=== PATIENT | female | born 1990 | race Caucasian/White ===

== ENCOUNTER 2020-05-22 01:13 | Outpatient (CLI) | payer BC, SELFPAY ==
[2020-05-22 18:31] LABS: SARS-CoV-2 RNA PCR Negative
== END 2020-05-22 01:14 | disposition home or self-care (01) ==
LOC: ANHCOVIDDT 01:13
PROVIDERS: PCP Obstetrics & Gynecology; Visit Provider Internal Medicine Gastroenterology
DX: Z01.812 Encounter for preprocedural laboratory examination (principal); Z20.828 Contact with and (suspected) exposure to other viral communicable diseases
CPT/HCPCS: 87635; C9803; U0003

== ENCOUNTER 2020-05-25 01:11 | Day surgery (SDC) | payer BC, SELFPAY ==
[2020-05-18 13:00] VITALS: BMI 42.2
[2020-05-25 12:46] VITALS: BP 143/96; PULSE 74; RESP 74; TEMP 36.2; O2SAT 99
[2020-05-25] MEDS: LACTATED RINGERS 1,000 ML 150 ML IV CONT (12:56)
--- NOTE | 2020-05-25 13:17 | P.PNAN_ITS ---
Anes - Initial Pre Proc Eval Procedure: Operation Date: 05/25/20 14:00 Proposed Procedures p Esophagogastroduodenoscopy & Colonoscopy - Leonardo Pfeiffer MD Date/Time: 05/25/20 13:17 Surgeon: Leonardo Pfeiffer MD Pre Op Diagnosis: Abdominal Pain/ Change In Bowel Habits Patient Data Age: 30 Gender: F Height: 5 ft 5 in Weight: 110.9 kg Last Vital Signs Temp 97.2 F L 05/25/20 12:46 Pulse 74 05/25/20 12:46 Resp 74 H 05/25/20 12:46 BP 143/96 H 05/25/20 12:46 Pulse Ox 99 05/25/20 12:46 Allergies Allergy/AdvReac Type Severity Reaction Status Date / Time prochlorperazine Allergy Rash Verified 05/25/20 12:45 [From Compazine] Home Medications Medication Instructions Recorded Confirmed Type levothyroxine 200 mcg tablet 225 mcg PO DAILY tablet 04/29/20 05/18/20 History naproxen sodium [Aleve] 220 mg PO Q12H PRN 05/18/20 05/18/20 History Patient hx anesthesia problems: none Family hx anesthesia problems: none [facility] Past Medical History Medical History (Updated 04/29/20 @ 14:30 by ARIANA Craig) Anemia Change in bowel habits Cholelithiases Headache Migraine Obesity Thyroid disease Surgical History Surgical History H/O thyroidectomy Family History Family History Father Heart disease Mother Heart disease Grandparent Heart disease Diabetes mellitus Sibling No known problems Social History Social History (Updated 04/29/20 @ 13:16 by Rhiannon Reaves) Smoking packs per day: 0.5 Smoking cigarettes per day: 10.0 Years smoked: 17 Smoking pack-years: 8.50 Smoking status: Current every day smoker Tobacco type: cigarettes Alcohol intake: never Substance use: current Substance use type: marijuana Other substance usage details: USES DAILY Last use: TODAY Spiritual care concerns: No Anes - Eval Final PreProcedure Day of Procedure 05/25/20 13:17 Patient weight: morbidly obese Heart: regular rate and rhythm Lungs: clear to auscultation Airway: Mallampati scale class II Neurological: alert and oriented Last oral intake: >/= 8 hours ASA classification: III Emergent: no Anesthetic plan: proceed Anesthesia type and monitoring: general GIVS and standard monitoring Informed Consent: The patient's anesthetic plan and its attendant risks and benefits were discussed with the patient/family/POA. Questions were solicited and answers provided to the satisfaction of the patient/family/POA.
--- NOTE | 2020-05-25 13:50 | WPDHPUPDATE1 ---
History and Physical Update Update Date/Time: 05/25/20 13:50 History and Physical has been reviewed, including an updated exam of the patient. There are NO changes in the patient's condition. Risks, benefits, and alternatives have been discussed and questions answered. Patient agrees to proceed with procedure.
[2020-05-25 14:30] VITALS: BP 118/74; PULSE 66; RESP 20; O2SAT 99
[2020-05-25 14:40] VITALS: BP 119/70; PULSE 59; RESP 22; O2SAT 98
[2020-05-25 14:50] VITALS: BP 122/78; PULSE 52; RESP 25; O2SAT 100
== END 2020-05-25 14:58 | disposition home or self-care (01) ==
PROVIDERS: Referring Provider Obstetrics & Gynecology; Visit Provider Internal Medicine Gastroenterology
PROC: 0DJ08ZZ Inspection of Upper Intestinal Tract, Via Natural or Artificial Opening Endoscopic (ICD-10-PCS; CPT 43235; principal; 2020-05-25 14:00)
DX: R10.32 Left lower quadrant pain (principal); D12.5 Benign neoplasm of sigmoid colon; K63.5 Polyp of colon; K64.8 Other hemorrhoids; K29.50 Unspecified chronic gastritis without bleeding; R11.0 Nausea; E03.9 Hypothyroidism, unspecified; E66.01 Morbid (severe) obesity due to excess calories; Z68.41 Body mass index [BMI] 40.0-44.9, adult
CPT/HCPCS: 45385; 43239; 88305; J2704; J7120

== ENCOUNTER 2021-07-20 09:26 | Outpatient (CLI) | payer BC, SELFPAY ==
--- NOTE | 2021-07-20 11:00 | NEURO_ITS ---
Impression: # Complains of numbness of hands. # Bilateral Carpal Tunnel Syndrome, right more than left. # Early ulnar neuropathy across the elbows. # Needle/EMG exam not requested. Nerve Conduction Studies Anti Sensory Summary Table Stim Site NR Peak (ms) P-T Amp (?V) Site1 Site2 Delta-P (ms) Dist (cm) Thanh (m/s) Left Median Anti Sensory (2-3nd Digit) Wrist 4.0 50.1 Wrist 2-3nd Digit 4.0 14.0 35 Wrist 4.0 35.1 Wrist 2-3nd Digit 4.0 14.0 35 Right Median Anti Sensory (2-3nd Digit) Wrist 5.3 5.2 Wrist 2-3nd Digit 5.3 14.0 26 Wrist 5.2 20.6 Wrist 2-3nd Digit 5.3 14.0 26 Left Radial Anti Sensory (Base 1st Digit) Wrist 1.9 20.2 Wrist Base 1st Digit 1.9 0.0 Right Radial Anti Sensory (Base 1st Digit) Wrist 1.9 32.8 Wrist Base 1st Digit 1.9 0.0 Left Ulnar Anti Sensory (5th Digit) Wrist 2.3 71.9 Wrist 5th Digit 2.3 14.0 61 Right Ulnar Anti Sensory (5th Digit) Wrist 2.2 38.3 Wrist 5th Digit 2.2 14.0 64 Motor Summary Table Stim Site NR Onset (ms) O-P Amp (mV) Site1 Site2 Delta-0 (ms) Dist (cm) Thanh (m/s) Left Median Motor Run #2 (Abd Poll Brev) Wrist 4.5 1.4 Elbow Wrist 4.4 25.0 57 Elbow 8.9 2.5 Right Median Motor (Abd Poll Brev) Wrist 5.4 1.4 Elbow Wrist 4.8 26.0 54 Elbow 10.2 0.9 Left Ulnar Motor (Abd Dig Minimi) Wrist 2.4 7.8 A Elbow Wrist 5.0 27.0 54 A Elbow 7.4 6.2 B Elbow Wrist 4.2 24.0 57 B Elbow 6.6 6.5 Right Ulnar Motor (Abd Dig Minimi) Wrist 2.8 8.4 A Elbow Wrist 5.3 27.0 51 A Elbow 8.1 6.1 B Elbow Wrist 3.5 19.0 54 B Elbow 6.3 7.8 F Wave Studies NR F-Lat (ms) L-R F-Lat (ms) Left Median (Mrkrs) (Abd Poll Brev) 28.56 0.49 Right Median (Mrkrs) (Abd Poll Brev) 28.07 0.49 Left Ulnar (Mrkrs) (Abd Dig Min) 27.73 0.35 Right Ulnar (Mrkrs) (Abd Dig Min) 27.38 0.35 MTDD
== END 2021-07-20 09:27 | disposition home or self-care (01) ==
LOC: ANHNEURO 09:28
DX: R20.2 Paresthesia of skin (principal); G56.03 Carpal tunnel syndrome, bilateral upper limbs
CPT/HCPCS: 95911